=== PATIENT | male | born 1995 | race African-American/Black ===

== ENCOUNTER 2016-10-16 10:42 | Emergency (ER) | payer MEDICAID ==
[2016-01-27 14:21] VITALS: BMI 23.7
[~2016-10-16 10:42] MED LIST: HYDROCODONE-APA1 TAB PO
== END 2016-10-16 14:27 | disposition home or self-care (01) ==
LOC: D.ER 10:42
DX: J20.9 Acute bronchitis, unspecified (principal); J06.9 Acute upper respiratory infection, unspecified; F17.200 Nicotine dependence, unspecified, uncomplicated